=== PATIENT | male | born 1950 | race Caucasian/White ===

== ENCOUNTER 2016-08-18 11:33 | Emergency (ER) | payer MEDICAID, MEDICARE ==
[~2016-08-18] VITALS: Ht 170.2 cm; Wt 69.4 kg
[2016-08-18 11:39] VITALS: BP 113/71
[2016-08-18 12:20] LABS: PATH.CAST-FLAG NOT PRESENT; SPERM-FLAG NOT PRESENT; SRC-FLAG NOT PRESENT; XTAL-FLAG NOT PRESENT; YLC-FLAG NOT PRESENT
== END 2016-08-18 12:49 | disposition home or self-care (01) ==
LOC: ED 12:39
DX: N30.00 Acute cystitis without hematuria (principal)
CPT/HCPCS: 81001; 87086; 99284

== ENCOUNTER 2016-09-21 22:28 | Emergency (ER) | payer MEDICARE ==
[~2016-09-21] VITALS: Ht 170.2 cm; Wt 68.9 kg
[2016-09-21 23:47] LABS: ASPARTATE AMINO TRANSFERASE 19 U/L (15-37); BLOOD UREA NITROGEN 14 mg/dL (7-18)
[2016-09-21 23:53] LABS: IS PT STATUS REG ER OR PRE ER? YES
[2016-09-22 00:17] VITALS: BP 101/70
== END 2016-09-22 00:33 | disposition home or self-care (01) ==
LOC: ED 09-22 00:27
DX: R07.2 Precordial pain (principal)
CPT/HCPCS: 36415; 71020; 80053; 84484; 85025; 93005; 99285

== ENCOUNTER 2017-01-23 15:39 | Emergency (ER) | payer MEDICARE ==
[~2017-01-23] VITALS: Ht 170.2 cm; Wt 71.1 kg
[2017-01-23 15:41] VITALS: BP 122/74
== END 2017-01-23 16:39 | disposition home or self-care (01) ==
LOC: ED 16:12
DX: R05 Cough (principal)
CPT/HCPCS: 71020; 99284

== ENCOUNTER 2019-09-22 17:30 | Emergency (ER) | payer MEDICARE, MEDICAID ==
[~2019-09-22] VITALS: Ht 167.6 cm; Wt 75.9 kg
[2019-09-22 17:32] VITALS: BP 121/71
== END 2019-09-22 18:28 | disposition home or self-care (01) ==
LOC: ED 18:02
DX: R04.0 Epistaxis (principal)
CPT/HCPCS: 99282

== ENCOUNTER 2019-10-12 03:34 | Emergency (ER) | payer MEDICARE, MEDICAID ==
[~2019-10-12] VITALS: Ht 167.6 cm; Wt 74.8 kg
[2019-10-12] MEDS ORDERED: HYDROcodone/APAP 5/325 TABLET PO PRN (04:00)
[2019-10-12] MEDS ORDERED: IBUPROFEN 600 MG TABLET PO ONE (04:00)
[2019-10-12] MEDS ORDERED: IBUPROFEN 600 MG TABLET ONE (04:15)
[2019-10-12] MEDS ORDERED: HYDROcodone/APAP 5/325 TABLET ONE (04:16)
--- NOTE | 2019-10-12 04:21 | NUR ---
PT STATES HE CAME IN FOR LEFT WRIST PAIN. DENIES TRAUMA, CMS INTACT. NAD, NO SWELLING OR DEFORMITIES NOTED. PT MEDICATED PER MAR, VSS, CALL LIGHT ON LAP. WAITING FOR RAD RESULTS. WCTM.
--- NOTE | 2019-10-12 05:09 | NUR ---
PT RESTING ON [facility] [place], STATES PAIN IS DECREASED WITH MEDS. WAITING FOR RAD YURIDIA, WCTM.
--- NOTE | 2019-10-12 05:52 | NUR ---
Patient given discharge instructions and they have confirmed that they understand the instructions. Patient ambulatory with steady gait. denies additional questions or needs at this time. NAD. VSS.
[2019-10-12 05:53] VITALS: BP 98/57
--- NOTE | 2019-10-12 05:53 | NUR ---
no pt belongings left in room after dc.
== END 2019-10-12 05:55 | disposition home or self-care (01) ==
LOC: ED 04:03
DX: S63.522A Sprain of radiocarpal joint of left wrist, initial encounter (principal); X58.XXXA Exposure to other specified factors, initial encounter; Y93.89 Activity, other specified; Y92.89 Other specified places as the place of occurrence of the external cause; Y99.8 Other external cause status
CPT/HCPCS: 29125; 99283

== ENCOUNTER 2019-12-31 14:30 | Emergency (ER) | payer MEDICARE, MEDICAID ==
[~2019-12-31] VITALS: Ht 167.6 cm; Wt 76.1 kg
[2019-12-31] MEDS ORDERED: SODIUM CHLORIDE FLUSH 10ML SYR IVF ONE (15:00)
[2019-12-31 15:18] LABS: BASOPHILS % (AUTO) 1 % (0-1); EOSINOPHILS % (AUTO) 1 % (1-7); LYMPHOCYTES % (AUTO) 16 % (22-44); MEAN CORPUSCULAR HEMOGLOBIN 29.8 pg (27.5-34.5); MEAN CORPUSCULAR HGB CONC 33.1 g/dL (33.2-36.2); MEAN PLATELET VOLUME 8.5 fL (7.4-10.4); MONOCYTES % (AUTO) 6 % (2-9); NEUTROPHILS % (AUTO) 77 % (42-75); PLATELET COUNT 203 x10^3/uL (130-400); RED BLOOD COUNT 4.92 x10^6/uL (4.38-5.82)
[2019-12-31 15:20] LABS: MD NO
[2019-12-31 15:27] LABS: ALANINE AMINOTRANSFERASE 21 U/L (12-78); ALBUMIN 4.2 g/dL (3.4-5.0); ANION GAP 4 mmol/L (5-15); CALCIUM 8.7 mg/dL (8.5-10.1); CHLORIDE 108 mmol/L (98-107); CREATININE 0.93 mg/dL (0.7-1.3)
[2019-12-31 15:29] LABS: ALKALINE PHOSPHATASE 81 U/L (45-117); BILIRUBIN,TOTAL 0.6 mg/dL (0.2-1.0); TOTAL PROTEIN 7.6 g/dL (6.4-8.2)
--- NOTE | 2019-12-31 16:58 | NUR ---
pt ambulates from [facility] to [facility] with steady gait.
--- NOTE | 2019-12-31 17:21 | NUR ---
IV ACCESS ESTABLISHED AT THIS TIME. PT EDUCATED ON POC AND VERBALIZES UNDERSTANDING. AWAITING CT AT THIS TIME.
[2019-12-31 17:26] LABS: MICROSCOPIC INDICATED
[2019-12-31] MEDS ORDERED: OMNIPAQUE 350 MG/ML, 100ML BOTTLE ONE (18:20)
[2019-12-31 18:45] VITALS: BP 145/75
--- NOTE | 2019-12-31 19:17 | NUR ---
PT D/C WITH D/C SUMMARY AND SCRIPTS. ALL QUESTIONS ANSWERED. PT AMBULATES TO REGISTRATION DESK WITH STEADY GAIT FOR D/C HOME. PT DENIES ANY OTHER NEEDS PERTAINING TO THIS VISIT.
== END 2019-12-31 19:19 | disposition home or self-care (01) ==
LOC: ED 15:00
DX: K29.00 Acute gastritis without bleeding (principal)
CPT/HCPCS: 36415; 74177; 80053; 81001; 83690; 85025; 99285; Q9967

== ENCOUNTER 2020-02-18 14:50 | Emergency (ER) | payer MEDICARE, MEDICAID ==
[~2020-02-18] VITALS: Ht 167.6 cm; Wt 76.9 kg
[2020-02-18] MEDS ORDERED: CARBAMIDE PEROXIDE EAR DROPS 6.5%, 15ML EACH EAR ONE (16:00)
--- NOTE | 2020-02-18 16:33 | NUR ---
TO [facility] FROM LOBBY
[2020-02-18] MEDS ORDERED: CARBAMIDE PEROXIDE EAR DROPS 6.5%, 15ML ONE (16:56)
--- NOTE | 2020-02-18 17:11 | NUR ---
Pt connected to BP and O2 monitors. NEDA.
[2020-02-18 18:43] VITALS: BP 123/75
== END 2020-02-18 18:45 | disposition home or self-care (01) ==
LOC: ED 17:55
DX: H61.23 Impacted cerumen, bilateral (principal)
CPT/HCPCS: 99282

== ENCOUNTER 2020-07-22 20:37 | Emergency (ER) | payer MEDICAID, MEDICARE ==
--- NOTE | 2020-07-22 21:04 | NUR ---
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 PT LEFT.
== END 2020-07-22 21:14 | disposition home or self-care (01) ==
LOC: ED 21:08
DX: N41.9 Inflammatory disease of prostate, unspecified (principal); Z53.21 Procedure and treatment not carried out due to patient leaving prior to being seen by health care provider

== ENCOUNTER 2020-11-15 12:32 | Emergency (ER) | payer MEDICARE, MEDICAID ==
[~2020-11-15] VITALS: Ht 167.6 cm; Wt 73.0 kg
[2020-11-15] MEDS ORDERED: PINK LADY ENEMA 490 ML BOTTLE PR STA (13:29)
[2020-11-15 14:45] VITALS: BP 110/81
== END 2020-11-15 15:24 | disposition home or self-care (01) ==
LOC: ED 13:26
DX: K59.00 Constipation, unspecified (principal)
CPT/HCPCS: 74021; 99284